=== PATIENT | male | born 1980 | race Hispanic/Latino ===

== ENCOUNTER 2024-07-03 12:37 | Emergency (ER) | payer OTHER ==
[~2024-07-03] VITALS: Ht 185.4 cm; Wt 150.6 kg
[2024-07-03 12:59] VITALS: PULSE 70; RESP 14
[2024-07-03 13:10] VITALS: TEMP 97.9; O2SAT 97
[2024-07-03] MEDS ORDERED: VALTREX1000 MG PO (14:54)
[2024-07-03] MEDS ORDERED: PREDNISONE50 MG PO (14:54)
== END 2024-07-03 15:30 | disposition home or self-care (01) ==
LOC: ER 13:00
DX: G51.0 Bell's palsy (principal); I10 Essential (primary) hypertension; E11.9 Type 2 diabetes mellitus without complications; E78.5 Hyperlipidemia, unspecified; E03.9 Hypothyroidism, unspecified; I25.2 Old myocardial infarction
CPT/HCPCS: 70450; 99283